=== PATIENT | female | born 1980 | race Caucasian/White ===

== ENCOUNTER 2020-06-29 10:58 | Inpatient (IN) | payer MEDICAID ==
[~2020-06-29] VITALS: Ht 154.9 cm; Wt 75.7 kg
[2020-06-29 11:04] VITALS: BP 106/66
--- NOTE | 2020-06-29 11:07 | NUR ---
PT AMBULATED TO BED 11, STEADY GAIT.
--- NOTE | 2020-06-29 11:20 | NUR ---
DENIES LOWER URINARY TRACT SYMPTOMS
--- NOTE | 2020-06-29 11:20 | NUR ---
39/F C/O INTERMITTENT RIGHT MID ABD PAIN/RUQ PAIN X 1 MONTH. STATES BURNING PAIN SENSATION. PAIN WORSENED LAST NIGHT. DENIES N/V/D, FEVER/CHILLS. VSS. NKDA PMH-DENIES RX- DENIES
--- NOTE | 2020-06-29 11:34 | NUR ---
DR. PAINTING EVALUATING PT AT BEDSIDE
[2020-06-29] MEDS ORDERED: KETOROLAC 30 MG/ML VIAL IM ONE (11:40)
--- NOTE | 2020-06-29 11:50 | NUR ---
FACILITIES AND GROUNDS DIRECTOR AT BEDSIDE FOR BLOOD DRAW
[2020-06-29 12:01] LABS: APPEARANCE,URINE HAZY (CLEAR); BILIRUBIN,URINE NEGATIVE (NEGATIVE); BLOOD, URINE NEGATIVE (NEGATIVE); COLOR,URINE YELLOW (YELLOW); LEUKOCYTE ESTERASE ,URINE 1+ (NEGATIVE); NITRITE, URINE NEGATIVE (NEGATIVE); PH,URINE 6.5 (5.0-9.0); UGLUCOSE NEGATIVE (NEGATIVE)
[2020-06-29 12:01] LABS: BASOPHILS % (AUTO) 0.5 % (0.0-2.0); EOSINOPHILS % (AUTO) 1.4 % (0.0-4.0); HEMATOCRIT 31.1 % (36-48); HEMOGLOBIN 10.3 g/dL (12.0-16.0); LYMPHOCYTES # (AUTO) 1.1 K/uL (2.5-16.5); LYMPHOCYTES % (AUTO) 31.8 % (20.5-51.1); MEAN CORPUSCULAR HEMOGLOBIN 28 pg (27-31); MEAN CORPUSCULAR HGB CONC 33 g/dL (33-37); MEAN CORPUSCULAR VOLUME 83.5 fL (80-94); MONOCYTES # (AUTO) 0.3 K/uL (0.8-1.0); MONOCYTES % (AUTO) 7.4 % (1.7-9.3); NEUTROPHILS % (AUTO) 58.9 % (42.2-75.2); PLATELET COUNT (AUTO) 195 K/uL (140-450); RED BLOOD CELL COUNT(AUTO) 3.72 MIL/uL (4.20-5.40); RED CELL DISTRIBUTION WIDTH 17.1 % (11.6-13.7); WHITE BLOOD COUNT (AUTO) 3.4 K/uL (4.8-10.8)
[2020-06-29 12:16] LABS: RBC,URINE 0-5 /HPF (0-5)
[2020-06-29 12:16] LABS: ALBUMIN 3.2 g/dL (3.4-5.0); ANION GAP 12.7 (8-16); CARBON DIOXIDE 24.4 mmol/L (21-32); CREATININE 0.7 mg/dL (0.6-1.3); POTASSIUM 4.1 mmol/L (3.5-5.1); TOTAL BILIRUBIN 0.2 mg/dL (0.0-1.0)
--- NOTE | 2020-06-29 12:16 | NUR ---
US tech at bedside for exam.
--- NOTE | 2020-06-29 12:20 | NUR ---
Ramesh claros in [facility] - 06/29/20 at 1220 by JOEL U/S TECH AT BEDSIDE
--- NOTE | 2020-06-29 12:57 | NUR ---
PT RESTING IN BED, SCROLLING THROUGH CELLPHONE, NAD.
[2020-06-29] MEDS ORDERED: MORPHINE SULFATE 4 MG/ML SYR IVP ONE (13:20)
[2020-06-29] MEDS ORDERED: ONDANSETRON 4 MG/2 ML VIAL IVP ONE (13:20)
[2020-06-29] MEDS ORDERED: NACL 0.9% 1,000 ML IV ONE (13:20)
[2020-06-29] MEDS ORDERED: cefTRIAXone 1,000 MG VIAL ONE (13:23)
[2020-06-29] MEDS ORDERED: ONDANSETRON 4 MG/2 ML VIAL IVP PRN ×2 (13:40→17:50)
[2020-06-29] MEDS ORDERED: ACETAMINOPHEN 325 MG TAB PO PRN (13:40)
[2020-06-29] MEDS ORDERED: HYDROcodone/APAP 5/325 MG 1 TAB TAB PO PRN ×2 (13:40→17:25)
[2020-06-29] MEDS ORDERED: ZOLPIDEM 5 MG TAB PO PRN (13:40)
[2020-06-29] MEDS ORDERED: DOCUSATE SODIUM 100 MG GELCAP PO PRN (13:40)
[2020-06-29] MEDS ORDERED: LORazepam 2 MG/ML VIAL IM/IVP PRN (13:40)
--- NOTE | 2020-06-29 13:42 | NUR ---
PT REFUSING ORDERED MORPHINE AND ZOFRAN AT THIS TIME.
--- NOTE | 2020-06-29 13:51 | NUR ---
xray at bedside
--- NOTE | 2020-06-29 14:35 | NUR ---
Patient will be admitted to care of Dr. Bonner. Admited to Med surg. Will go to room 104B. Belongings list completed. Report to Emperatriz GERMAIN.
[2020-06-29 14:40] VITALS: BP 109/73
--- NOTE | 2020-06-29 14:40 | NUR ---
RECEIVED PT FROM ER NURSE, IVELISSE, PT IS AOX4, IRISH AND INDONESIAN SPEAKING, FROM HOME, IV LINE NOTED ON THE RAC G. 18 ON SALINE LOCK, PT IS ON ROOM AIR, V/S STABLE AND DENIES PAIN, NO SIGN OF DISTRESS NOTED AND WILL MONITOR PT.
--- NOTE | 2020-06-29 14:52 | NUR ---
MRSA SWAB DONE TO PT AND SAMPLE WAS SENT TO LAB.
[2020-06-29 14:57] LABS: CHOL/HDL RATIO 2.5 (1-4.5); FREE T4 (FREE THYROXINE) 1.13 ng/dL (0.76-1.46); MAGNESIUM 1.9 mg/dL (1.8-2.4); PHOSPHORUS 2.9 mg/dL (2.5-4.9); THYROID STIMULATING HORMONE 1.61 uIU/mL (0.34-3.74)
[2020-06-29 15:05] LABS: PROTHROMBIN TIME 10.2 secs (10.8-13.4)
--- NOTE | 2020-06-29 15:10 | NUR ---
COVID 19 GERALDINE TESTING WAS DONE TO PT NOW.
--- NOTE | 2020-06-29 16:30 | NUR ---
PT IS OFF THE UNIT NOW FOR A LAPAROSCOPIC CHOLECYSTECTOMY POSSIBLE OPEN.
[2020-06-29] MEDS ORDERED: LIDOCAINE 1% 500 MG/50 ML VIAL ONE (16:58)
[2020-06-29] MEDS ORDERED: BUPIVACAINE MPF 0.25% 10 ML VIAL INJ ONE (16:58)
[2020-06-29] MEDS ORDERED: DEXAMETHASONE 4 MG/ML VIAL ONE (17:22)
[2020-06-29] MEDS ORDERED: METOCLOPRAMIDE 10 MG/2 ML INJ VIAL ONE (17:22)
[2020-06-29] MEDS ORDERED: PROPOFOL 200 MG/20 ML VIAL IV ONE (17:22)
[2020-06-29] MEDS ORDERED: HYDROmorphone PFS 2 MG/ML SYR ONE ×2 (17:22→19:11)
[2020-06-29] MEDS ORDERED: ceFAZolin 1,000 MG VIAL ONE (17:22)
[2020-06-29] MEDS ORDERED: SEVOFLURANE 250 ML BTL INH ONE (17:22)
[2020-06-29] MEDS ORDERED: ONDANSETRON 4 MG/2 ML VIAL ONE (17:22)
[2020-06-29] MEDS ORDERED: SUCCINYLCHOLINE CHLORIDE 200 MG/10 ML VIAL IVP ONE (17:22)
[2020-06-29] MEDS ORDERED: fentaNYL citrate 0.05 MG/ML VIAL ONE (17:22)
[2020-06-29] MEDS ORDERED: ROCURONIUM 50 MG/5 ML VIAL IV ONE (17:22)
[2020-06-29] MEDS ORDERED: MIDAZOLAM 2 MG/2 ML VIAL ONE (17:22)
[2020-06-29] MEDS ORDERED: HYDROmorphone 1 MG/ML AMP IVP PRN (17:25)
[2020-06-29] MEDS: HYDROmorphone 1 MG/ML AMP IVP PRN ×2 (19:00→19:10)
--- NOTE | 2020-06-29 19:15 | NUR ---
ENDORSED PT TO TOP DISTRIBUTION EXECUTIVE NURSEDIANE FOR CONTINUITY OF CARE. PT IS STILL IN OR .
--- NOTE | 2020-06-29 19:35 | NUR ---
RECEIVED CONTINUITY OF CARE FROM OR NURSE. PT HAS JUST RETURNED FROM OR. 4 SURGICAL WOUNDS WITH DERMABOND, CLEAN, DRY, INTACT NOTED ON ABD. PT IS BREATHING SPONTANEOUSLY ON ROOM. NO SIGNS OF DISTRESS NOTED.
--- NOTE | 2020-06-29 20:39 | NUR ---
DR CHAIREZ ORDERED D5 HALF NS AT 50ML/HR TO BE DC AT 06/30/2020 0700. PT MAY START CARDIAC DIET NOW TOLERATED. Addendum: 06/29/20 at 2040 by James Bashir RN POTASSIUM 20 MEQ TO BE ADDED TO D5 HALF NS.
[2020-06-29] MEDS ORDERED: POTASSIUM CHL 20 MEQ/D5-1/2NS 1,000 ML IV SCH (20:55)
[2020-06-29] MEDS: metroNIDAZOLE 500 MG/NS PREMIX 100 ML IV SCH (21:37)
--- NOTE | 2020-06-29 21:40 | NUR ---
ADMINISTERED SCHEDULED MEDS. EDUCATION WAS GIVEN. WILL CONTINUE TO MONITOR.
--- NOTE | 2020-06-29 23:15 | NUR ---
WHILE ATTEMPTING TO DRAW UP MORPHINE, PUSHED IN TOO MUCH AIR AND THE VIAL BROKE. Addendum: 06/30/20 at 0046 by James Bashir RN WASTED 2M MORPHINE WITH MARIZOL GERMAIN IN [facility] [facility].
[2020-06-29] MEDS ORDERED: MORPHINE SULFATE 2 MG/ML SYR ONE (23:17)
[2020-06-29] MEDS: MORPHINE SULFATE 2 MG/ML SYR IVP PRN (23:29)
--- NOTE | 2020-06-30 00:47 | NUR ---
PT IS SLEEPING. VISIBLE CHEST RISE NOTED.
[2020-06-30] MEDS: metroNIDAZOLE 500 MG/NS PREMIX 100 ML IV SCH ×2 (04:34→13:00)
[2020-06-30 06:01] LABS: BASOPHILS % (AUTO) 0.1 % (0.0-2.0); HEMATOCRIT 30.8 % (36-48); LYMPHOCYTES # (AUTO) 0.5 K/uL (2.5-16.5); LYMPHOCYTES % (AUTO) 8.8 % (20.5-51.1); MEAN CORPUSCULAR HEMOGLOBIN 28 pg (27-31); MEAN CORPUSCULAR HGB CONC 33 g/dL (33-37); MEAN CORPUSCULAR VOLUME 84.5 fL (80-94); MONOCYTES # (AUTO) 0.3 K/uL (0.8-1.0); MONOCYTES % (AUTO) 5.5 % (1.7-9.3); NEUTROPHILS # (AUTO) 5.1 K/uL (1.8-7.7); NEUTROPHILS % (AUTO) 85.6 % (42.2-75.2); PLATELET COUNT (AUTO) 203 K/uL (140-450); RED BLOOD CELL COUNT(AUTO) 3.64 MIL/uL (4.20-5.40); RED CELL DISTRIBUTION WIDTH 16.9 % (11.6-13.7)
[2020-06-30 06:08] LABS: ANION GAP 12.3 (8-16); CARBON DIOXIDE 23.6 mmol/L (21-32); CREATININE 0.7 mg/dL (0.6-1.3); POTASSIUM 3.9 mmol/L (3.5-5.1)
[2020-06-30] MEDS: MORPHINE SULFATE 2 MG/ML SYR IVP PRN (06:10)
[2020-06-30 06:42] LABS: MAGNESIUM 1.7 mg/dL (1.8-2.4); PHOSPHORUS 2.8 mg/dL (2.5-4.9)
--- NOTE | 2020-06-30 07:00 | NUR ---
RECEIVED REPORT FROM CONTROL PANEL OPERATOR CRUDE UNIT NURSE PA-RN, PT RESTING IN BED, AOX4, ON ROOM AIR WITH RIGHT AC #18G/SL. S/P LAP PALMA BY DR. CHAIREZ ON 06/29- X4 ABD INCISION CLOSED WITH DERMABOND. DISCUSSED PLAN OF CARE AND PT VERBALIZED UNDERSTANDING. CALL LIGHT WITHIN REACH. NO S/S OF RESPIRATORY DISTRESS OR DISCOMFORT NOTED AT THIS TIME. WILL CONTINUE TO MONITOR.
--- NOTE | 2020-06-30 07:30 | NUR ---
ENDORSED CARE TO AM NURSE. PT IS IN STABLE CONDITION.
--- NOTE | 2020-06-30 09:00 | NUR ---
PT RESTING IN BED. CALL LIGHT WITHIN REACH. NO S/S OF RESPIRATORY DISTRESS OR DISCOMFORT NOTED AT THIS TIME. WILL CONTINUE TO MONITOR.
[2020-06-30] MEDS ORDERED: IBUP-2213 PO (10:02)
[2020-06-30] MEDS ORDERED: METR250T2 PO (10:02)
[2020-06-30] MEDS ORDERED: MAG400 PO (10:02)
--- NOTE | 2020-06-30 11:14 | NUR ---
PT C/O PAIN 01/05 AND REQUESTED PAIN MEDICATION. NORCO GIVEN AND TOLERATED WELL. CALL LIGHT WITHIN REACH. NO S/S OF RESPIRATORY DISTRESS OR DISCOMFORT NOTED AT THIS TIME. WILL CONTINUE TO MONITOR.
[2020-06-30 12:54] VITALS: BP 108/55
--- NOTE | 2020-06-30 13:00 | NUR ---
SCHEDULED MEDICATION FLAGYL NOT GIVEN. PT STATED SHE WOULD TAKE HER DOSE SOON HER RX IS FILLED. CALL LIGHT WITHIN REACH. NO S/S OF RESPIRATORY DISTRESS OR DISCOMFORT NOTED AT THIS TIME. WILL CONTINUE TO MONITOR.
--- NOTE | 2020-06-30 13:55 | NUR ---
PT SIGNED DISCHARGE PAPERWORK. PAPER RX GIVEN. IV REMOVED- CATHETER INTACT. ID BAND REMOVED. PT CALLED FRIEND FOR PICK-UP. PT LEFT HER VEHICLE IN ER PARKING LOT. PT WALKED TO EMERGENCY PARKING LOT WAITING FOR FRIEND TO DRIVE HER CAR. PT IN STABLE CONDITIONS AT THIS TIME.
--- NOTE | 2020-07-02 16:55 | NUR ---
CONFIRMED WITH RN NS INFUSION END TIME 1440 AND ROCEPHIN INFUSION END TIME OF 1400 ON 06/29/20
== END 2020-06-30 13:55 | disposition home or self-care (01) | DRG 263 ==
LOC: MED 10:58 → MTU 13:40
PROVIDERS: ADMIT Family Medicine; ATTEND Family Medicine
PROC: 0FT44ZZ Resection of Gallbladder, Percutaneous Endoscopic Approach (ICD-10-PCS; principal; 2020-06-29 18:20)
DX: K80.00 Calculus of gallbladder with acute cholecystitis without obstruction (principal); K59.09 Other constipation; N39.0 Urinary tract infection, site not specified; D64.9 Anemia, unspecified; E44.1 Mild protein-calorie malnutrition; E66.9 Obesity, unspecified; Z68.31 Body mass index [BMI] 31.0-31.9, adult; Z20.828 Contact with and (suspected) exposure to other viral communicable diseases; D72.819 Decreased white blood cell count, unspecified; R73.9 Hyperglycemia, unspecified; E83.42 Hypomagnesemia; E83.51 Hypocalcemia; E78.5 Hyperlipidemia, unspecified; Z83.3 Family history of diabetes mellitus; Z82.49 Family history of ischemic heart disease and other diseases of the circulatory system
CPT/HCPCS: 36415; 71045; 76705; 80048; 80053; 81001; 82150; 83036; 83605; 83690; 83735; 83880; 84100; 84439; 84443; 84484; 85025; 85610; 85730; 87040; 87081; 87086; 99285; J0330; J0690; J0696; J1100; J1170; J1885; J2001; J2250; J2270; J2405; J2704; J2765; J3010; J3490; J7030; Q0092

== ENCOUNTER 2020-07-12 18:33 | Emergency (ER) | payer MEDICAID ==
[~2020-07-12] VITALS: Ht 158.8 cm; Wt 76.7 kg
[~2020-07-12 18:33] MED LIST: IBUP-2213 PO; MAG400 PO; METR250T2 PO
[2020-07-12 18:49] VITALS: BP 109/66
--- NOTE | 2020-07-12 18:55 | NUR ---
PT TAKEN TO BED 09 BUT REFUSED TO ENTER ISO ROOM. EXPLAINED TO PT THAT ROOMS ARE CLEANED IF OCCUPIED EARLIER BY PT NEEDING ISO. PT UNDERSTAND BUT WISHES TO WAIT IN LOBBY FOR NON-ISO ROOM. PT TO LOBBY.
--- NOTE | 2020-07-12 18:55 | NUR ---
Patient ambulated to bed 9. RN evaluating patient at bedside.
--- NOTE | 2020-07-12 19:42 | NUR ---
PT AMBULATED TO BED 11 WITH STEADY GAIT
--- NOTE | 2020-07-12 20:00 | NUR ---
39 Y/O FERMALE C/O RT SIDE ABD PAIN X 2 WEEKS S/P GALLBLADDER REMOVAL SURGERY. DENIES ANY N,V,D. +CONSTIPATION. LAST BM WAS TODAY. DENIES ANY BLOOD IN STOOL. VSS. ABD IS ROUND, SOFT, AND TENDERNESS TO TOUCH ON RT SIDE OF ABD, ACTIVE BS. 7/10 PAIN DESCRIBES IT SHARP AND RADIATES TO RT SIDE OF BACK. A&O X4. STEADY GAIT. DENIES ANY CHAGNES OF APPETTIE AND IS ABLE TO HOLD DOWN FOOD AND LIQUIDS. NKDA. PMH: GALLBLADDER REMOVAL.
[2020-07-12] MEDS ORDERED: IBUPROFEN 600 MG TAB PO ONE (20:10)
--- NOTE | 2020-07-12 20:19 | NUR ---
LAB AT BEDSIDE.
[2020-07-12 20:29] LABS: BASOPHILS % (AUTO) 0.6 % (0.0-2.0); EOSINOPHILS # (AUTO) 0.1 K/uL (0-0.4); EOSINOPHILS % (AUTO) 2.1 % (0.0-4.0); HEMATOCRIT 32.4 % (36-48); HEMOGLOBIN 10.4 g/dL (12.0-16.0); LYMPHOCYTES % (AUTO) 36.1 % (20.5-51.1); MEAN CORPUSCULAR HEMOGLOBIN 27 pg (27-31); MEAN CORPUSCULAR HGB CONC 32 g/dL (33-37); MEAN CORPUSCULAR VOLUME 83.6 fL (80-94); MONOCYTES # (AUTO) 0.4 K/uL (0.8-1.0); MONOCYTES % (AUTO) 7.5 % (1.7-9.3); NEUTROPHILS % (AUTO) 53.7 % (42.2-75.2); PLATELET COUNT (AUTO) 324 K/uL (140-450); RED BLOOD CELL COUNT(AUTO) 3.88 MIL/uL (4.20-5.40); RED CELL DISTRIBUTION WIDTH 16.6 % (11.6-13.7); WHITE BLOOD COUNT (AUTO) 5.5 K/uL (4.8-10.8)
--- NOTE | 2020-07-12 20:30 | NUR ---
US AT BEDSIDE
[2020-07-12 20:40] LABS: ALBUMIN 3.6 g/dL (3.4-5.0); ANION GAP 10.9 (8-16); CARBON DIOXIDE 29.9 mmol/L (21-32); CREATININE 0.7 mg/dL (0.6-1.3); POTASSIUM 3.8 mmol/L (3.5-5.1); TOTAL BILIRUBIN 0.1 mg/dL (0.0-1.0)
[2020-07-12 21:50] VITALS: BP 105/74
--- NOTE | 2020-07-12 21:50 | NUR ---
PT DISCHARGED. ACI AND RX IN POSESSION. ARM BAND REMOVED
--- NOTE | 2020-07-12 22:10 | NUR ---
Patient discharged with v/s stable. Written and verbal after care instructions given and explained. Patient alert, oriented and verbalized understanding of instructions. Ambulatory with steady gait. All questions addressed prior to discharge. ID band removed. Patient advised to follow up with PMD. Rx of PEPCID and MOTRIN given. Patient educated on indication of medication including possible reaction and side effects. Opportunity to ask questions provided and answered.
== END 2020-07-12 21:50 | disposition home or self-care (01) ==
LOC: MED 18:33
DX: G89.18 Other acute postprocedural pain (principal); Z90.49 Acquired absence of other specified parts of digestive tract; Z79.899 Other long term (current) drug therapy
CPT/HCPCS: 36415; 76705; 80053; 81002; 81025; 83690; 85025; 99284; Q0092

== ENCOUNTER 2022-08-19 19:50 | Emergency (ER) | payer MEDICAID ==
[~2022-08-19 19:50] MED LIST changes: -MAG400 PO; +MAGN400T61 PO; +METR-520 PO; -METR250T2 PO
--- NOTE | 2022-08-19 21:59 | NUR ---
CALLED TO TRIAGE X 3, NO ANSWER. PT LWBS
== END 2022-08-19 21:59 | disposition left against medical advice (07) ==
LOC: MED 19:50
DX: R51.9 Headache, unspecified (principal); Z53.21 Procedure and treatment not carried out due to patient leaving prior to being seen by health care provider

== ENCOUNTER 2022-09-13 18:39 | Emergency (ER) | payer MEDICAID ==
[~2022-09-13] VITALS: Ht 162.6 cm; Wt 78.0 kg
[2022-09-13 18:54] VITALS: BP 99/68
--- NOTE | 2022-09-13 19:03 | NUR ---
COVID, FLU SWABS DONE.
--- NOTE | 2022-09-13 19:09 | NUR ---
BIB SELF C/O COUGH, STUFFY NOSE X 2 WEEKS , C/O 7/10 LEFT EAR PAIN X 3 DAYS AND C/O LEFT EYE REDNESS, LIP SWELLING X TODAYS. COVID TESTED NEGATIVE 2 DAYS AGO.
[2022-09-13] MEDS ORDERED: DOCO1CRE TP (19:29)
[2022-09-13] MEDS ORDERED: IBUP-1842 PO (19:29)
[2022-09-13] MEDS ORDERED: BROM118S3 PO (19:29)
[2022-09-13] MEDS ORDERED: ERYT5OIN58 LEFT EYE (19:29)
--- NOTE | 2022-09-13 19:40 | NUR ---
Patient discharged with v/s stable. Written and verbal after care instructions given and explained. Patient alert, oriented and verbalized understanding of instructions. Ambulatory with steady gait. All questions addressed prior to discharge. ID band removed. Patient advised to follow up with PMD. Rx of BROMPHENIR ABREVA ERYTHROMYCIN MOTRIN given.
== END 2022-09-13 19:40 | disposition home or self-care (01) ==
LOC: MED 18:39
DX: J06.9 Acute upper respiratory infection, unspecified (principal); Z20.822 Contact with and (suspected) exposure to COVID-19; H10.9 Unspecified conjunctivitis
CPT/HCPCS: 99283